=== PATIENT | male | born 1980 | race Caucasian/White ===

== ENCOUNTER 2020-01-04 13:48 | Emergency (ER) | payer MEDICAID ==
[~2020-01-04] VITALS: Ht 185.4 cm; Wt 75.0 kg
[2020-01-04 13:50] VITALS: BP 128/81
[2020-01-04] MEDS ORDERED: KETOROLAC 30 MG/1 ML ONE (14:17)
[2020-01-04 14:24] LABS: BASOPHILS # (AUTO) 0.03 x10^3/uL (0-0.1); BASOPHILS % (AUTO) 0 % (0-1); EOSINOPHILS # (AUTO) 0.23 x10^3/uL (0-0.4); EOSINOPHILS % (AUTO) 3 % (1-7); LYMPHOCYTES % (AUTO) 34 % (22-44); MD NO; MEAN CORPUSCULAR HEMOGLOBIN 30.9 pg (27.5-34.5); MEAN CORPUSCULAR HGB CONC 33.8 g/dL (33.2-36.2); MEAN CORPUSCULAR VOLUME 91.4 fL (81-97); MEAN PLATELET VOLUME 7.9 fL (7.4-10.4); MONOCYTES # (AUTO) 0.83 x10^3/uL (0.2-0.8); MONOCYTES % (AUTO) 9 % (2-9); NEUTROPHILS # (AUTO) 4.73 x10^3/uL (1.8-6.8); NEUTROPHILS % (AUTO) 54 % (42-75); PLATELET COUNT 307 x10^3/uL (130-400); RED BLOOD COUNT 4.54 x10^6/uL (4.38-5.82); RED CELL DISTRIBUTION WIDTH 13.9 % (9.4-14.8)
[2020-01-04] MEDS ORDERED: KETOROLAC 30 MG/1 ML IM ONE (14:30)
[2020-01-04] MEDS ORDERED: CEFTRIAXONE 1,000 MG IM ONE (15:00)
[2020-01-04] MEDS ORDERED: CEFTRIAXONE 1,000 MG ONE (15:08)
--- NOTE | 2020-01-04 15:44 | NUR ---
At time of d/c, pt alert, oriented and in NAD. Pt given crutches. Pt educated on OTC meds, home care, prescriptions and follow-up. Pt VU. Pt ambulated out of ER.
== END 2020-01-04 16:13 | disposition home or self-care (01) ==
LOC: ED 15:45
DX: L03.115 Cellulitis of right lower limb (principal); L03.116 Cellulitis of left lower limb; M79.661 Pain in right lower leg; F17.210 Nicotine dependence, cigarettes, uncomplicated; Z90.89 Acquired absence of other organs
CPT/HCPCS: 36415; 73610; 84550; 85025; 93971; 96372; 99285; 99406; J0696; J1885

== ENCOUNTER 2020-01-05 16:05 | Emergency (ER) | payer MEDICAID ==
[~2020-01-05] VITALS: Ht 185.4 cm; Wt 77.4 kg
[2020-01-05 16:21] VITALS: BP 130/82
== END 2020-01-05 17:06 | disposition home or self-care (01) ==
LOC: ED 17:00
DX: Z48.01 Encounter for change or removal of surgical wound dressing (principal); R21 Rash and other nonspecific skin eruption
CPT/HCPCS: 99281